=== PATIENT | female | born 2000 | race Two or more races ===

== ENCOUNTER 2023-12-15 05:50 | Day surgery (SDC) | payer OTHER ==
[2023-12-15] MEDS ORDERED: POVIDONE-IODINE 118 ML BOTT TOP ONE ×2 (15:13→16:00)
[2023-12-15] MEDS ORDERED: CHLORHEXIDINE GLUCONATE 120 ML BOTTLE TOP ONE ×2 (15:13→16:00)
[2023-12-15] MEDS ORDERED: CLINDAMYCIN PHOSPHATE 150 MG/ML (600mg) ONE (15:15)
[2023-12-15] MEDS ORDERED: CLINDAMYCIN PHOSPHATE 150 MG/ML (600mg) IV SCH (16:00)
== END 2023-12-15 22:10 | disposition home or self-care (01) ==
LOC: CIR.AMB 05:50
PROVIDERS: ATTEND Obstetrics & Gynecology
DX: N72 Inflammatory disease of cervix uteri (principal); R87.612 Low grade squamous intraepithelial lesion on cytologic smear of cervix (LGSIL); Z88.0 Allergy status to penicillin